=== PATIENT | male | born 1965 | race Caucasian/White ===

== ENCOUNTER 2022-03-31 12:43 | Emergency (ER) | payer BC, OTHER ==
[~2022-03-31] VITALS: Ht 177.8 cm; Wt 81.6 kg
--- NOTE | 2022-03-31 13:26 | ED General ---
General Chief Complaint: General Problems/Pain Stated Complaint: SOB/NAUSEA Nursing Triage Note: ARRIVES TO ED WITH A C/O SOB FOR 3 MONTHS WORSENED THE LAST 4 DAYS, ALSO C/O NAUSE, VOMITING, RIGHT FLANK PAIN, TROUBLE SLEEPING, AND NIGHT SWEATS. ALEIVE AT HOME FOR PAIN 5/10 IN RIGHT FLANK. Source of Information: Patient Exam Limitations: No Limitations History of Present Illness Date Seen by Provider: Mar 31, 2022 Time Seen by Provider: 13:20 Initial Comments Patient is a 56-year-old male who presents to the emergency department with 3 to 4 months of shortness of air, right back pain, and intermittent night sweats. He denies any recent weight loss. States he has not had any chest pain. Has a history of atrial fibrillation for which he takes Eliquis. 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 He states he is currently in the area for work and will be for the next 3 weeks. Denies any history of lung problems but states he is a daily smoker. He states the shortness of air worsens with exertion. He states that shortness of air has been worse over the last 3 to 4 days. Denies any recent dependent edema. States he has not had any recent viral symptoms. Allergies and Home Medications Allergies Coded Allergies: Penicillins (Verified Allergy, Unknown, 03/31/22) coconut (Verified Allergy, Unknown, 03/31/22) Patient Home Medication List Home Medication List Reviewed: Yes Review of Systems Review of Systems Constitutional: no symptoms reported EENTM: no symptoms reported Respiratory: dyspnea on exertion, short of breath Cardiovascular: no symptoms reported Gastrointestinal: no symptoms reported Genitourinary: no symptoms reported Musculoskeletal: no symptoms reported Skin: no symptoms reported Psychiatric/Neurological: No Symptoms Reported Hematologic/Lymphatic: No Symptoms Reported Immunological/Allergic: no symptoms reported Past Zroyrgc-[id number]-[id number] Hx Patient Social History Tobacco Use?: Yes Tobacco type used: Cigarettes Smoking Status: Current Everyday Smoker Use of E-Cig and/or Vaping dev: No Substance use?: No Alcohol Use?: Yes Alcohol type: Beer Alcohol Frequency: Once in a while Pt feels they are or have been: No Immunizations Up To Date Influenza Vaccine Up-to-Date: No; Not Current First/Initial COVID19 Vaccinat: 2020 Second COVID19 Vaccination Jim: 2020 Third COVID19 Vaccination Date: 2021 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 Physical Exam Vital Signs Vital Signs - First Documented 03/31/22 12:50 Temp 36.9 Pulse 85 Resp 18 B/P (MAP) 131/78 (95) Pulse Ox 99 O2 Delivery Room Air Capillary Refill : Less Than 3 Seconds Height, Weight, BMI Height: '" Weight: lbs. oz. kg; 25.00 BMI Method: General Appearance: No Apparent Distress, WD/WN HEENT: PERRL/EOMI, TMs Normal, Normal ENT Inspection, Pharynx Normal Neck: Full Range of Motion, Normal Inspection, Non Tender, Supple Respiratory: Chest Non Tender, Lungs Clear, Normal Breath Sounds, No Accessory Muscle Use, No Respiratory Distress Cardiovascular: Regular Rate, Rhythm, No Edema, No Gallop, No JVD, No Murmur, Normal Peripheral Pulses Gastrointestinal: Normal Bowel Sounds, No Organomegaly, No Pulsatile Mass, Non Tender, Soft Back: Normal Inspection, No Vertebral Tenderness Extremity: Normal Capillary Refill, Normal Inspection, Normal Range of Motion, Non Tender, No Calf Tenderness Neurologic/Psychiatric: Alert, Oriented x3, No Motor/Sensory Deficits, Normal 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, 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 Norm as Tested Skin: Normal Color, Warm/Dry Progress/Results/Core Measures Suspected Sepsis SIRS Temperature: Pulse: 85 Respiratory Rate: 18 Laboratory Tests 03/31/22 13:32: White Blood Count 10.3 Blood Pressure 131 /78 Mean: 95 Laboratory Tests 03/31/22 13:32: Creatinine 0.79, INR Comment 1.2, Platelet Count 201, Total Bilirubin 0.9 Results/Orders Lab Results Laboratory Tests Test 03/31/22 13:32 Range/Units White Blood Count 10.3 4.3-11.0 10^3/uL Red Blood Count 3.81 L 4.30-5.52 10^6/uL Hemoglobin 10.5 L 13.3-17.7 g/dL Hematocrit 34 L 40-54 % Mean Corpuscular Volume 88 80-99 fL Mean Corpuscular Hemoglobin 28 25-34 pg Mean Corpuscular Hemoglobin Concent 31 L 32-36 g/dL Red Cell Distribution Width 13.6 10.0-14.5 % Platelet Count 201 130-400 10^3/uL Mean Platelet Volume 9.9 9.0-12.2 fL Immature Granulocyte % (Auto) 1 % Neutrophils (%) (Auto) 86 H 42-75 % Lymphocytes (%) (Auto) 6 L 12-44 % Monocytes (%) (Auto) 7 0-12 % Eosinophils (%) (Auto) 0 0-10 % Basophils (%) (Auto) 0 0-10 % Neutrophils # (Auto) 8.9 H 1.8-7.8 10^3/uL Lymphocytes # (Auto) 0.6 L 1.0-4.0 10^3/uL Monocytes # (Auto) 0.7 0.0-1.0 10^3/uL Eosinophils # (Auto) 0.0 0.0-0.3 10^3/uL Basophils # (Auto) 0.0 0.0-0.1 10^3/uL Immature Granulocyte # (Auto) 0.1 0.0-0.1 10^3/uL Neutrophils % (Manual) 88 % Lymphocytes % (Manual) 6 % Monocytes % (Manual) 5 % Eosinophils % (Manual) 1 % Basophils % (Manual) 0 % Band Neutrophils 0 % Blood Morphology Comment NORMAL Prothrombin Time 15.9 H 12.2-14.7 SEC INR Comment 1.2 0.8-1.4 Activated Partial Thromboplast Time 27 24-35 SEC Sodium Level 134 L 135-145 MMOL/L Potassium Level 3.9 3.6-5.0 MMOL/L Chloride Level 99 98-107 MMOL/L Carbon Dioxide Level 21 21-32 MMOL/L Anion Gap 14 5-14 MMOL/L Blood Urea Nitrogen 12 7-18 MG/DL Creatinine 0.79 0.60-1.30 MG/DL Estimat Glomerular Filtration Rate 104 BUN/Creatinine Ratio 15 Glucose Level 144 H 70-105 MG/DL Calcium Level 8.9 8.5-10.1 MG/DL Corrected Calcium 9.3 8.5-10.1 MG/DL Magnesium Level 1.9 1.6-2.4 MG/DL Total Bilirubin 0.9 0.1-1.0 MG/DL Aspartate Amino Transf (AST/SGOT) 50 H 5-34 U/L Alanine Aminotransferase (ALT/SGPT) 51 0-55 U/L Alkaline Phosphatase 214 H 40-136 U/L Myoglobin 33.3 10.0-92.0 NG/ML Troponin I < 0.028 <0.028 NG/ML B-Type Natriuretic Peptide 49.2 <100.0 PG/ML Total Protein 7.5 6.4-8.2 GM/DL Albumin 3.5 3.2-4.5 GM/DL My Orders Orders - TIMUR FREEDMAN YOUTH MANAGER Cbc With Automated Diff (03/31/22 13:21) Magnesium (03/31/22 13:21) Chest 1 View, Ap/Pa Only (03/31/22 13:21) Ekg Tracing (03/31/22 13:21) Comprehensive Metabolic Panel (03/31/22 13:21) Myoglobin Serum (03/31/22 13:21) Protime With Inr (03/31/22 13:21) Partial Thromboplastin Time (03/31/22 13:21) Monitor-Rhythm Ecg Trace Only (03/31/22 13:21) Ed Iv/Invasive Line Start (03/31/22 13:21) Bnp Susana (03/31/22 13:21) Troponin I [facility] (03/31/22 13:21) Manual Differential (03/31/22 13:32) Vital Signs/I&O 03/31/22 12:50 Temp 36.9 Pulse 85 Resp 18 B/P (MAP) 131/78 (95) Pulse Ox 99 O2 Delivery Room Air Capillary Refill : Less Than 3 Seconds Blood Pressure Mean: 95 Progress Note : Progress Note Patient is nontoxic and well-hydrated on exam. Vital signs are reassuring. Patient is not tachycardic, tachypneic, or hypoxic. No increased work of breathing appreciated. No adventitious lung sounds noted on auscultation. Patient is able to speak in full sentences. Abdominal exam is benign. Patient was able to walk into the room without provocation of worsening symptoms. EKG without acute ischemic change. There is some irregular irregularity that would be consistent with patient's history of atrial fibrillation but the rate is well controlled. Laboratory evaluation is largely unremarkable. Patient is very mildly anemic. Troponin and BNP are within normal limits. Chest x-ray acutely negative. There is no diagnostic certainty as to what might be causing the patient's symptoms but there appears to be no specific emergent etiology requiring further testing or admission to the hospital. Will provide patient albuterol inhaler to use as needed for the shortness of breath to see if this improves symptomology. Discussed importance of follow-up for further evaluation if symptoms persist. Return precautions for urgent symptomology discussed. Patient verbalized understanding. ECG EKG : Rate: 69 Rhythm: A Fib/Flutter Intervals: Normal ECG Impression: Atrial Fibrillation Departure Impression Primary Impression: Shortness of breath Disposition: HOME, SELF-CARE Condition: Stable Departure-Patient Inst. Decision time for Depature: 14:30 Patient Instructions: Shortness of Breath (Dyspnea) (DC) Scripts Albuterol Sulfate (VENTOLIN HFA) 1 Puff Puff 2-4 PUFF INH Q4H PRN for shortness of breath, #1 EA 0 Refills 1 PUFF = 90 MCG Prov: TIMUR FREEDMAN APRN 03/31/22 TIMUR FREEDMAN APRN Mar 31, 2022 13:26
[2022-03-31 13:43] LABS: BASOPHILS % (AUTO) 0 % (0-10); EOSINOPHILS % (AUTO) 0 % (0-10); HEMATOCRIT 34 % (40-54); HEMOGLOBIN 10.5 g/dL (13.3-17.7); LYMPHOCYTES # (AUTO) 0.6 10^3/uL (1.0-4.0); LYMPHOCYTES % (AUTO) 6 % (12-44); MEAN CORPUSCULAR HEMOGLOBIN 28 pg (25-34); MEAN CORPUSCULAR HGB CONC 31 g/dL (32-36); MEAN CORPUSCULAR VOLUME 88 fL (80-99); MEAN PLATELET VOLUME 9.9 fL (9.0-12.2); MONOCYTES # (AUTO) 0.7 10^3/uL (0.0-1.0); MONOCYTES % (AUTO) 7 % (0-12); NEUTROPHILS # (AUTO) 8.9 10^3/uL (1.8-7.8); NEUTROPHILS % (AUTO) 86 % (42-75); PLATELET COUNT 201 10^3/uL (130-400); WHITE BLOOD COUNT 10.3 10^3/uL (4.3-11.0)
--- NOTE | 2022-03-31 13:55 | Diagnostic Imaging Report ---
INDICATION: Chest pain. Frontal chest obtained at 1:26 p.m. FINDINGS: Heart and mediastinal silhouette are normal in appearance. The lungs are clear. There is no pneumothorax or pleural fluid. IMPRESSION: Negative chest. Dictated by: Dictated on workstation # [id number]
[2022-03-31 13:58] LABS: ALBUMIN 3.5 GM/DL (3.2-4.5); POTASSIUM 3.9 MMOL/L (3.6-5.0)
[2022-03-31 13:59] LABS: CALCIUM 8.9 MG/DL (8.5-10.1)
[2022-03-31 14:00] LABS: TOTAL PROTEIN 7.5 GM/DL (6.4-8.2)
[2022-03-31 14:02] LABS: BILIRUBIN,TOTAL 0.9 MG/DL (0.1-1.0)
[2022-03-31 14:04] LABS: CREATININE SERUM 0.79 MG/DL (0.60-1.30)
[2022-03-31 14:07] LABS: INR 1.2 (0.8-1.4); MAGNESIUM 1.9 MG/DL (1.6-2.4); PROTHROMBIN TIME PATIENT 15.9 SEC (12.2-14.7)
[2022-03-31 14:23] LABS: BAND NEUTROPHILS 0 %; LYMPHOCYTES % (MANUAL) 6 %; NEUTROPHILS % (MANUAL) 88 %
[2022-03-31 14:24] LABS: BASOPHILS % (MANUAL) 0 %; EOSINOPHILS % (MANUAL) 1 %; MONOCYTES % (MANUAL) 5 %; RBC MORPH NORMAL
[2022-03-31] MEDS ORDERED: RT-ALBUINH INH (14:36)
[2022-03-31] MEDS ORDERED: ONDA4TAB11 SL (14:45)
[2022-03-31 14:48] VITALS: BP 127/80
== END 2022-03-31 14:47 | disposition home or self-care (01) ==
LOC: ER 12:48
DX: R06.02 Shortness of breath (principal); I48.91 Unspecified atrial fibrillation; D64.9 Anemia, unspecified; F17.210 Nicotine dependence, cigarettes, uncomplicated; Z79.01 Long term (current) use of anticoagulants
CPT/HCPCS: 36415; 71045; 80053; 83735; 83874; 83880; 84484; 85007; 85027; 85610; 85730; 93005; 93041